=== PATIENT | female | born 1955 | race Caucasian/White ===

== ENCOUNTER 2021-01-28 04:29 | Emergency (ER) | payer BC ==
[~2021-01-28 04:29] MED LIST: AMARYL4 MG PO; CALCIUM + VITA1 EACH PO; CIPROFLOXACIN500 M1 PO; DIOVAN 80 MG TA80 MG PO; FLAGYL500 MG PO; GLUCOPHAGE1000 MG PO; HUMALOG100 UNIT/3 SC; HUMALOG100 UNIT/3 SQ; HYDROCHLOROTHIA25 MG PO; PREDNISONE5 MG PO; PROBIOTIC1 EAC1 PO; ST. JOSEPH ASPI81 MG PO
[2021-01-28 05:40] LABS: HEMOGLOBIN 12.9 gm/dl (12.3-15.3); RED BLOOD COUNT 3.92 M/UL (4.00-5.10); WHITE BLOOD COUNT 7.7 K/UL (4.5-11.0)
[2021-01-28 05:53] LABS: BUN/CREATININE RATIO 23 (0-10)
== END 2021-01-28 10:52 | disposition home or self-care (01) ==
LOC: ER1 04:29
PROVIDERS: Student in an Organized Health Care Education/Training Program
DX: R10.11 Right upper quadrant pain (principal); I10 Essential (primary) hypertension; M06.9 Rheumatoid arthritis, unspecified; Z90.49 Acquired absence of other specified parts of digestive tract; Z90.710 Acquired absence of both cervix and uterus; Z88.8 Allergy status to other drugs, medicaments and biological substances; Z79.899 Other long term (current) drug therapy
CPT/HCPCS: 71045; 71275; 80053; 81001; 82550; 82553; 83605; 83690; 83874; 84484; 85025; 93005; 96374; 96375; 96376; 99284; J2270; J2405; Q9967